=== PATIENT | male | born 1990 | race Caucasian/White ===

== ENCOUNTER 2022-10-22 08:39 | Emergency (ER) | payer OTHER ==
[2022-10-22] MEDS ORDERED: Fluticasone NASAL Spray 16 GM Bottle NASBOTH SCH (09:45)
== END 2022-10-22 11:10 | disposition home or self-care (01) ==
LOC: MW.ED 08:39
DX: E03.9 Hypothyroidism, unspecified (principal); Z79.899 Other long term (current) drug therapy
CPT/HCPCS: 36415; 84439; 84443; 99283; A9270

== ENCOUNTER 2024-06-01 11:55 | Emergency (ER) | payer OTHER ==
[2024-06-01 12:20] LABS: BASOPHILS ABSOLUTE AUTO 0.04 K/uL (0.00-0.20); BASOPHILS PERCENT AUTO 0.9 % (0.0-1.0); EOSINOPHILS ABSOLUTE AUTO 0.11 K/uL (0.00-0.45); EOSINOPHILS PERCENT AUTO 2.6 % (0.0-6.0); HEMATOCRIT 48.8 % (42.0-52.0); HEMOGLOBIN 17.3 g/dL (14.0-18.0); LYMPHOCYTES ABSOLUTE AUTO 1.73 K/uL (1.00-4.80); LYMPHOCYTES PERCENT AUTO 40.9 % (24.0-44.0); MEAN CORPUSCULAR HEMOGLOBIN 32.3 pg (28.0-32.0); MEAN CORPUSCULAR HGB CONC 35.5 g/dL (32.0-36.0); MEAN PLATELET VOLUME 9.1 fL (9.4-12.4); MONOCYTES PERCENT AUTO 9.5 % (0.0-8.0); NEUTROPHILS ABSOLUTE AUTO 1.95 K/uL (1.80-7.70); NEUTROPHILS PERCENT AUTO 46.1 % (41.0-71.0); PLATELET COUNT,PLT 206 K/uL (150-400); RED BLOOD CELL COUNT 5.36 M/uL (4.52-5.90); WHITE BLOOD CELL COUNT,WBC 4.23 K/uL (3.9-11.3)
[2024-06-01] MEDS: Famotidine 20 MG/2 ML SDV IVPUSH ONE (12:20)
[2024-06-01] MEDS: Sodium Chloride 0.9% 1,000 ML IV ONE (12:20)
[2024-06-01] MEDS: Alum Hydro/Mag Hydro/Simeth XS 15 ML, Metoclopramide 5 MG, Lidocaine 2% 5 ML PO ONE (12:20)
[2024-06-01 12:45] LABS: A/G RATIO 1.4 (0.9-1.6); ALBUMIN 4.8 g/dL (3.4-5.0); BILIRUBIN TOTAL 0.8 mg/dL (0.2-1.0); CALCIUM 9.2 mg/dL (8.5-10.1); CARBON DIOXIDE,CO2 29.1 mmol/L (21.0-32.0); CREATININE 1.2 mg/dL (0.8-1.3); EST CRCL DRUG DOSING (CG) 81.74 mL/min; POTASSIUM,K 4.3 mmol/L (3.5-5.1); PROTEIN TOTAL,TP 8.3 g/dL (6.4-8.2); T3 FREE 2.96 pg/mL (2.18-3.98); T4 FREE 0.87 ng/dL (0.76-1.46); TSH ULTRASENSITIVE 7.89 uIU/mL (0.36-3.74)
== END 2024-06-01 13:57 | disposition home or self-care (01) ==
LOC: MW.ED 11:55
DX: K21.9 Gastro-esophageal reflux disease without esophagitis (principal); E03.9 Hypothyroidism, unspecified; Z75.8 Other problems related to medical facilities and other health care
CPT/HCPCS: 80053; 83690; 84439; 84443; 84481; 85025; 96361; 96374; 99284; A9270; J3490; J7030